=== PATIENT | female | born 1930 | race African-American/Black ===

== ENCOUNTER 2016-08-11 19:17 | Inpatient (IN) | payer MEDICARE, MEDICAID ==
[~2016-08-11] VITALS: Ht 160 cm; Wt 54.4 kg
[2016-08-11] MEDS ORDERED: MORPHINE SULFATE 4 MG/ML CPJ (NOT FOR IM USE) IV ONE (21:00)
[2016-08-11 21:21] LABS: CLARITY URINE CLOUDY (CLEAR); COLOR URINE YELLOW (YELLOW); GLUCOSE URINE NEGATIVE (NEGATIVE); KETONES URINE NEGATIVE (NEGATIVE); LEUKOCYTE ESTERASE URINE 3+ (NEGATIVE); NITRITE URINE NEGATIVE (NEGATIVE); OCCULT BLOOD URINE 3+ (NEGATIVE); PH URINE 5.5 (4.5-8.0); PROTEIN URINE 1+ (NEGATIVE); SPECIFIC GRAVITY URINE 1.022 (1.005-1.030); UROBILINOGEN URINE 0.2 E.U./dL (0.2-1.0)
[2016-08-11 21:40] LABS: BACTERIA URINE 2+; YEAST URINE 2+
[2016-08-11 21:41] LABS: RBC URINE 25-50 /hpf (0-2); SQUAMOUS EPITHELIAL CELL URINE RARE /lpf (RARE/1+); WBC URINE 25-50 /hpf (0-2)
[2016-08-11 22:51] LABS: BASOPHILS % 0.2 % (0.0-2.0); HEMATOCRIT. 25.6 % (36.0-48.0); HEMOGLOBIN. 8.2 g/dL (12.0-16.0); LYMPHOCYTES % 19.1 % (20.0-50.0); MEAN CORPUSCULAR HEMOGLOBIN 28.2 pg (28.0-32.0); MEAN CORPUSCULAR VOLUME 88.1 fL (81.0-99.0); MEAN PLATELET VOLUME 8.9 fl (7.4-10.4); NEUTROPHILS % 75.7 % (40.0-76.0); PLATELET 125 x1000/uL (130-400); RED BLOOD CELL COUNT 2.91 mill/uL (4.2-5.4); RED CELL DISTRIBUTION WIDTH 16.3 % (11.6-14.6); WHITE BLOOD COUNT 11.7 x1000/uL (4.5-11.0)
[2016-08-11 22:58] LABS: INR 1.3; PROTHROMBIN TIME 13.4 sec
[2016-08-11 23:03] LABS: ALANINE AMINOTRANSFERASE 15 IU/L (13-61); ALBUMIN 1.6 g/dL (3.4-5.0); ANION GAP 17; CALCIUM 7.4 mg/dL (8.5-10.1); CARBON DIOXIDE 16 mEq/L (21-32); CHLORIDE 117 mEq/L (98-107); INDEX HEMOLYSI 1 (1-3); INDEX ICTERIC 1 (1-4); INDEX LIPEMIC 1 (1-3); LIPASE 67 IU/L (73-393); UREA NITROGEN BLOOD 37 mg/dL (7-21); eGFR 37 mL/min (>60)
[2016-08-11 23:06] LABS: TROPONIN I 0.39 ng/mL (0.00-0.04)
[2016-08-12] MEDS ORDERED: CEFTRIAXONE 1,000 MG in DEXTROSE 5% WATER 25 ML IV ONE (00:30)
[2016-08-12] MEDS ORDERED: AZITHROMYCIN 500 MG in DEXT 5% WATER 250 ML IV ONE (00:30)
[2016-08-12] MEDS ORDERED: LORAZEPAM 2MG/ML CPJ IV NR (00:45)
[2016-08-12] MEDS ORDERED: CEFTRIAXONE 1GM PREMIX 50ML IV NR (00:45)
[2016-08-12] MEDS ORDERED: SODIUM CHLORIDE 0.9% 1,000 ML IV ONE (01:45)
[2016-08-12 03:45] VITALS: BP 93/50
[2016-08-12 08:00] VITALS: BP 125/73
[2016-08-12] MEDS ORDERED: DOCUSATE SODIUM 100MG CAPSULE PO PRN (08:45)
[2016-08-12] MEDS ORDERED: ONDANSETRON HCL 4MG/2ML VIAL IV PRN (08:45)
[2016-08-12] MEDS ORDERED: GUAIFENESIN 200MG/10ML SUGAR FREE UDC PO PRN (08:45)
[2016-08-12] MEDS ORDERED: CEFTRIAXONE 1 G PREMIX 50 ML IV SCH (08:45)
[2016-08-12] MEDS ORDERED: ACETAMINOPHEN 325MG TABLET PO PRN (08:45)
[2016-08-12] MEDS ORDERED: AZITHROMYCIN 500 MG in DEXT 5% WATER 250 ML IV SCH ×2 (08:45→22:00)
[2016-08-12] MEDS ORDERED: MAGNESIUM/ALUMINUM HYDROXIDE/SIMETHICONE 30ML UDC PO PRN (08:45)
[2016-08-12] MEDS ORDERED: IPRATROPIUM/ALBUTEROL 0.5-3(2.5)MG/3ML NEB INH PRN (08:45)
[2016-08-12] MEDS ORDERED: NA PHOS,M-B/NA PHOS,DI-BA ENEMA 118ML PR PRN (08:45)
[2016-08-12] MEDS ORDERED: ACETAMINOPHEN 650MG/20.3ML UDC GT PRN (08:45)
[2016-08-12 08:47] LABS: BASOPHILS % 0.3 % (0.0-2.0); EOSINOPHILS % 0.4 % (0.0-5.0); HEMATOCRIT. 24.8 % (36.0-48.0); HEMOGLOBIN. 8.1 g/dL (12.0-16.0); LYMPHOCYTES % 16.6 % (20.0-50.0); MEAN CORPUSCULAR HEMOGLOBIN 28.3 pg (28.0-32.0); MEAN CORPUSCULAR HGB CONC 32.7 g/dL (31.0-37.0); MEAN CORPUSCULAR VOLUME 86.5 fL (81.0-99.0); MEAN PLATELET VOLUME 8.7 fl (7.4-10.4); MONOCYTES % 4.5 % (2.0-8.0); NEUTROPHILS % 78.2 % (40.0-76.0); PLATELET 124 x1000/uL (130-400); RED BLOOD CELL COUNT 2.87 mill/uL (4.2-5.4); RED CELL DISTRIBUTION WIDTH 16.2 % (11.6-14.6)
[2016-08-12] MEDS: ENOXAPARIN 30MG/0.3ML SYR SUBCUT SCH (09:00)
[2016-08-12 09:12] LABS: ANION GAP 16; CALCIUM 7.4 mg/dL (8.5-10.1); CARBON DIOXIDE 15 mEq/L (21-32); CHLORIDE 119 mEq/L (98-107); INDEX HEMOLYSI 1 (1-3); INDEX ICTERIC 1 (1-4); INDEX LIPEMIC 1 (1-3); UREA NITROGEN BLOOD 40 mg/dL (7-21); eGFR 40 mL/min (>60)
[2016-08-12] MEDS ORDERED: CEFTRIAXONE XX SCH (09:15)
[2016-08-12] MEDS ORDERED: AZITHROMYCIN XX SCH (09:15)
[2016-08-12 09:42] LABS: ALANINE AMINOTRANSFERASE 12 IU/L (13-61); IRON 12 ug/dL (50-175)
[2016-08-12 09:49] LABS: CLARITY URINE TURBID (CLEAR); COLOR URINE DARK YELLOW (YELLOW); GLUCOSE URINE NEGATIVE (NEGATIVE); KETONES URINE TRACE (NEGATIVE); LEUKOCYTE ESTERASE URINE 3+ (NEGATIVE); NITRITE URINE NEGATIVE (NEGATIVE); OCCULT BLOOD URINE 3+ (NEGATIVE); PROTEIN URINE 2+ (NEGATIVE); SPECIFIC GRAVITY URINE 1.025 (1.005-1.030)
[2016-08-12 09:50] LABS: ALBUMIN 1.6 g/dL (3.4-5.0); TOTAL IRON BINDING CAPACITY 93 ug/dL (250-450)
[2016-08-12 10:04] LABS: SQUAMOUS EPITHELIAL CELL URINE FEW /lpf (RARE/1+)
[2016-08-12 10:05] LABS: INDEX HEMOLYSI 1 (1-3)
[2016-08-12 10:06] LABS: BACTERIA URINE 3+; WBC URINE 15-25 /hpf (0-2); YEAST URINE 4+
[2016-08-12 10:13] LABS: *AMPHETAMINES SCREEN URINE NEGATIVE (NEGATIVE); *BARBITURATES SCREEN URINE NEGATIVE (NEGATIVE); *BENZODIAZEPINES SCREEN URINE NEGATIVE (NEGATIVE); *COCAINE SCREEN URINE NEGATIVE (NEGATIVE); CANNABINOID URINE SCREEN NEGATIVE (NEGATIVE); ECSTASY MDMA SCREEN URINE NEGATIVE (NEGATIVE); OPIATES URINE SCREEN PRESUMTIVE POSITIVE (NEGATIVE); PHENCYCLIDINE URINE SCREEN NEGATIVE (NEGATIVE)
[2016-08-12 10:28] LABS: METHADONE URINE SCREEN PRESUMTIVE POSITIVE (NEGATIVE)
[2016-08-12 10:29] LABS: FOLIC ACID (FOLATE) SERUM > 20.00 ng/mL (>5.38); VITAMIN B12 SERUM > 2000 pg/mL (211-911)
[2016-08-12] MEDS: DEXT 5%/0.45% NACL 1000ML 1,000 ML IV SCH ×2 (10:49)
[2016-08-12] MEDS: CEFTRIAXONE 1 G PREMIX 50 ML IV SCH ×2 (10:50→20:06)
[2016-08-12 12:00] VITALS: BP 131/72
[2016-08-12] MEDS: IPRATROPIUM/ALBUTEROL 0.5-3(2.5)MG/3ML NEB INH SCH ×2 (14:28→21:18)
[2016-08-12] MEDS ORDERED: FUROSEMIDE 20MG TABLET PO SCH (14:30)
[2016-08-12] MEDS: CITRIC ACID/SODIUM CITRATE SOLN 15ML UDC PO SCH ×2 (14:30→17:00)
[2016-08-12] MEDS: SODIUM CHLORIDE 0.9% INJ 3ML FLUSH IVF SCH ×2 (14:59→21:43)
[2016-08-12 15:18] LABS: BG BASE EXCESS -9.6 mmol/L (-2.0-2.0); BG CARBOXYHEMOGLOBIN 1.3 % (0.5-1.5); BG DEOXYHEMOGLOBIN 2.5 % (0.0-5.0); BG FRACTION INSPIRED OXYGEN 21; BG HCO3 ACT 13.3 mmol/L (22.0-26.0); BG METHEMOGLOBIN 0.3 % (0.0-1.5); BG OXYGEN SATURATION 97.5 % (92.0-98.5); BG OXYHEMOGLOBIN 95.9 % (94.0-97.0); BG PCO2 20.6 mmHg (35.0-45.0); BG PH 7.429 (7.350-7.450); BG SAMPLE SITE RIGHT BRACHIAL; BG TOTAL HEMOGLOBIN 8.7 g/dL (12.0-18.0); BG VENT MODE ROOM AIR
[2016-08-12 16:00] VITALS: BP 116/69
[2016-08-12 20:00] VITALS: BP 123/79
[2016-08-12] MEDS: DIPHENHYDRAMINE 50MG/ML VIAL IV PRN (20:06)
[2016-08-13] VITALS: BP 130/84
[2016-08-13] MEDS: DIPHENHYDRAMINE 50MG/ML VIAL IV PRN (00:11)
[2016-08-13] MEDS: IPRATROPIUM/ALBUTEROL 0.5-3(2.5)MG/3ML NEB INH SCH ×4 (02:40→20:56)
[2016-08-13] MEDS: DEXT 5%/0.45% NACL 1000ML 1,000 ML IV SCH ×4 (03:29→18:40)
[2016-08-13 04:00] VITALS: BP 118/67
[2016-08-13] MEDS: SODIUM CHLORIDE 0.9% INJ 3ML FLUSH IVF SCH ×3 (05:11→22:09)
[2016-08-13 05:40] LABS: BASOPHILS % 0.4 % (0.0-2.0); EOSINOPHILS % 0.8 % (0.0-5.0); HEMATOCRIT. 27.1 % (36.0-48.0); HEMOGLOBIN. 8.8 g/dL (12.0-16.0); LYMPHOCYTES % 20.5 % (20.0-50.0); MEAN CORPUSCULAR HGB CONC 32.4 g/dL (31.0-37.0); MEAN CORPUSCULAR VOLUME 86.4 fL (81.0-99.0); MEAN PLATELET VOLUME 8.7 fl (7.4-10.4); MONOCYTES % 5.2 % (2.0-8.0); NEUTROPHILS % 73.1 % (40.0-76.0); PLATELET 147 x1000/uL (130-400); RED BLOOD CELL COUNT 3.13 mill/uL (4.2-5.4); RED CELL DISTRIBUTION WIDTH 16.4 % (11.6-14.6); WHITE BLOOD COUNT 8.6 x1000/uL (4.5-11.0)
[2016-08-13 07:00] LABS: ALBUMIN 1.7 g/dL (3.4-5.0); ANION GAP 14; CARBON DIOXIDE 18 mEq/L (21-32); CHLORIDE 116 mEq/L (98-107); INDEX HEMOLYSI 1 (1-3); INDEX ICTERIC 1 (1-4); INDEX LIPEMIC 1 (1-3); LDL CHOLESTEROL 28 mg/dL (5-100); MAGNESIUM 1.7 mg/dL (1.8-2.4); eGFR 29 mL/min (>60)
[2016-08-13 07:01] LABS: HDL CHOLESTEROL 41 mg/dL (40-59); TRIGLYCERIDE 61 mg/dL (0-150); TROPONIN I 0.37 ng/mL (0.00-0.04)
[2016-08-13 07:04] LABS: ALANINE AMINOTRANSFERASE 13 IU/L (13-61); CALCIUM 7.5 mg/dL (8.5-10.1); UREA NITROGEN BLOOD 44 mg/dL (7-21)
[2016-08-13 08:00] VITALS: BP 142/81
[2016-08-13] MEDS: ACETAMINOPHEN 650MG SUPP PR PRN (08:20)
[2016-08-13] MEDS ORDERED: MAGNESIUM 2 G PREMIX 50 ML IV NR (09:00)
[2016-08-13] MEDS: CITRIC ACID/SODIUM CITRATE SOLN 15ML UDC PO SCH ×3 (09:00→17:00)
[2016-08-13 12:00] VITALS: BP 117/72
[2016-08-13] MEDS: CEFTRIAXONE 1 G PREMIX 50 ML IV SCH ×2 (12:07→22:09)
[2016-08-13] MEDS ORDERED: FLUCONAZOLE 100MG/50ML PREMIX IV SCH (14:15)
[2016-08-13] MEDS: RISPERIDONE 0.5MG TABLET PO SCH (14:30)
[2016-08-13 16:00] VITALS: BP 160/85
[2016-08-13] MEDS: FLUCONAZOLE 100 MG/50ML BAG 50 ML IV SCH (18:35)
[2016-08-13 20:00] VITALS: BP 158/78
[2016-08-14] VITALS (8 sets, daily range): BP systolic 113–187; BP diastolic 76–108
[2016-08-14] MEDS: ACETAMINOPHEN 650MG SUPP PR PRN ×2 (00:57→09:03)
[2016-08-14] MEDS: DIPHENHYDRAMINE 50MG/ML VIAL IV PRN ×2 (00:58→22:42)
[2016-08-14] MEDS: IPRATROPIUM/ALBUTEROL 0.5-3(2.5)MG/3ML NEB INH SCH ×4 (01:13→22:23)
[2016-08-14 06:30] LABS: HEMATOCRIT. 22.4 % (36.0-48.0); HEMOGLOBIN. 7.5 g/dL (12.0-16.0); MEAN CORPUSCULAR HEMOGLOBIN 28.9 pg (28.0-32.0); MEAN CORPUSCULAR HGB CONC 33.6 g/dL (31.0-37.0); MEAN PLATELET VOLUME 8.2 fl (7.4-10.4); PLATELET 117 x1000/uL (130-400); RED CELL DISTRIBUTION WIDTH 16.7 % (11.6-14.6); WHITE BLOOD COUNT 4.9 x1000/uL (4.5-11.0)
[2016-08-14] MEDS: SODIUM CHLORIDE 0.9% INJ 3ML FLUSH IVF SCH ×3 (06:51→21:15)
[2016-08-14 06:53] LABS: CALCIUM 7.3 mg/dL (8.5-10.1); PHOSPHORUS 3.2 mg/dL (2.5-4.9)
[2016-08-14 07:14] LABS: DIFFERENTIAL COMMENT 1
[2016-08-14 07:51] LABS: BG CARBOXYHEMOGLOBIN 1.4 % (0.5-1.5); BG DEOXYHEMOGLOBIN 2.3 % (0.0-5.0); BG FRACTION INSPIRED OXYGEN 21; BG METHEMOGLOBIN 0.3 % (0.0-1.5); BG OXYGEN SATURATION 97.7 % (92.0-98.5); BG PCO2 16.6 mmHg (35.0-45.0); BG PH 7.477 (7.350-7.450); BG SAMPLE SITE RIGHT BRACHIAL; BG TOTAL HEMOGLOBIN 8.1 g/dL (12.0-18.0); BG VENT MODE ROOM AIR
[2016-08-14] MEDS: RISPERIDONE 0.5MG TABLET PO SCH (08:50)
[2016-08-14] MEDS: CITRIC ACID/SODIUM CITRATE SOLN 15ML UDC PO SCH (08:50)
[2016-08-14] MEDS: CEFTRIAXONE 1 G PREMIX 50 ML IV SCH ×2 (09:03→22:00)
[2016-08-14] MEDS ORDERED: MORPHINE SULFATE 2 MG/ML CPJ (NOT FOR IM USE) IV PRN (10:00)
[2016-08-14 10:58] LABS: PLATELET ESTIMATE DECREASED; TOXIC GRANULATION 1+
[2016-08-14 10:59] LABS: ANISOCYTOSIS 1+
[2016-08-14] MEDS: POTASSIUM CHLORIDE INJ 30 MEQ in DEXT 5%/0.2% NACL 1,000 ML IV SCH (12:11)
[2016-08-14] MEDS: CLONIDINE 0.1MG TABLET PO PRN (20:06)
[2016-08-14] MEDS: FLUCONAZOLE 100 MG/50ML BAG 50 ML IV SCH (21:16)
[2016-08-15] VITALS: BP 147/82
[2016-08-15] MEDS: IPRATROPIUM/ALBUTEROL 0.5-3(2.5)MG/3ML NEB INH SCH ×4 (01:06→20:50)
[2016-08-15 04:00] VITALS: BP 138/93
[2016-08-15] MEDS: POTASSIUM CHLORIDE INJ 30 MEQ in DEXT 5%/0.2% NACL 1,000 ML IV SCH (04:15)
[2016-08-15] MEDS: SODIUM CHLORIDE 0.9% INJ 3ML FLUSH IVF SCH ×2 (06:08→16:58)
[2016-08-15 07:24] LABS: CALCIUM 7.4 mg/dL (8.5-10.1); MAGNESIUM 1.9 mg/dL (1.8-2.4); PHOSPHORUS 2.6 mg/dL (2.5-4.9); THYROID STIMULATING HORMONE 1.2 uIU/mL (0.36-3.74)
[2016-08-15 07:42] LABS: BASOPHILS % 0.3 % (0.0-2.0); EOSINOPHILS % 0.7 % (0.0-5.0); HEMATOCRIT. 28.9 % (36.0-48.0); HEMOGLOBIN. 9.5 g/dL (12.0-16.0); LYMPHOCYTES % 26.9 % (20.0-50.0); MEAN CORPUSCULAR HEMOGLOBIN 28.4 pg (28.0-32.0); MEAN PLATELET VOLUME 8.2 fl (7.4-10.4); MONOCYTES % 7.2 % (2.0-8.0); NEUTROPHILS % 64.9 % (40.0-76.0); PLATELET 130 x1000/uL (130-400); RED BLOOD CELL COUNT 3.36 mill/uL (4.2-5.4); RED CELL DISTRIBUTION WIDTH 15.7 % (11.6-14.6); WHITE BLOOD COUNT 6.5 x1000/uL (4.5-11.0)
[2016-08-15 08:00] VITALS: BP 161/95
[2016-08-15] MEDS: RISPERIDONE 0.5MG TABLET PO SCH (09:41)
[2016-08-15] MEDS: MEMANTINE HCL 5MG TABLET PO SCH (09:41)
[2016-08-15] MEDS: CEFTRIAXONE 1 G PREMIX 50 ML IV SCH (09:42)
[2016-08-15] MEDS: AMLODIPINE 5MG TABLET PO SCH (09:42)
[2016-08-15] MEDS: DEXT 5% WATER + KCL 20MEQ/L 1,000 ML IV SCH (12:21)
[2016-08-15 16:00] VITALS: BP 157/86
[2016-08-15] MEDS: AMPICILLIN 2,000 MG in SODIUM CHLORIDE 0.9% 100 ML IV SCH (16:58)
[2016-08-15] MEDS: FLUCONAZOLE 100 MG/50ML BAG 50 ML IV SCH (18:18)
[2016-08-15 20:00] VITALS: BP 159/111
[2016-08-16] VITALS: BP 176/88
[2016-08-16] MEDS: SODIUM CHLORIDE 0.9% INJ 3ML FLUSH IVF SCH ×4 (00:07→22:17)
[2016-08-16] MEDS: AMPICILLIN 2,000 MG in SODIUM CHLORIDE 0.9% 100 ML IV SCH ×4 (00:07→22:17)
[2016-08-16] MEDS: IPRATROPIUM/ALBUTEROL 0.5-3(2.5)MG/3ML NEB INH SCH ×4 (02:00→20:04)
[2016-08-16] MEDS: CLONIDINE 0.1MG TABLET PO PRN (02:08)
[2016-08-16 04:00] VITALS: BP 153/106
[2016-08-16 07:22] LABS: BASOPHILS % 0.5 % (0.0-2.0); EOSINOPHILS % 1.1 % (0.0-5.0); HEMATOCRIT. 27.1 % (36.0-48.0); HEMOGLOBIN. 9.2 g/dL (12.0-16.0); LYMPHOCYTES % 35.4 % (20.0-50.0); MEAN CORPUSCULAR HEMOGLOBIN 28.7 pg (28.0-32.0); MEAN CORPUSCULAR HGB CONC 33.9 g/dL (31.0-37.0); MEAN CORPUSCULAR VOLUME 84.8 fL (81.0-99.0); MEAN PLATELET VOLUME 7.8 fl (7.4-10.4); MONOCYTES % 9.1 % (2.0-8.0); NEUTROPHILS % 53.9 % (40.0-76.0); PLATELET 127 x1000/uL (130-400); RED CELL DISTRIBUTION WIDTH 16.4 % (11.6-14.6)
[2016-08-16 08:00] VITALS: BP 154/82
[2016-08-16 08:11] LABS: ANION GAP 14; CALCIUM 7.5 mg/dL (8.5-10.1); CARBON DIOXIDE 16 mEq/L (21-32); CHLORIDE 119 mEq/L (98-107); INDEX HEMOLYSI 1 (1-3); INDEX ICTERIC 1 (1-4); INDEX LIPEMIC 1 (1-3); MAGNESIUM 1.8 mg/dL (1.8-2.4); UREA NITROGEN BLOOD 22 mg/dL (7-21); eGFR > 60 mL/min (>60)
[2016-08-16] MEDS: MEMANTINE HCL 5MG TABLET PO SCH (08:58)
[2016-08-16] MEDS: LACTOBACILLUS GG CAPSULE PO SCH (08:58)
[2016-08-16] MEDS: AMLODIPINE 5MG TABLET PO SCH (08:59)
[2016-08-16] MEDS: RISPERIDONE 0.5MG TABLET PO SCH (08:59)
[2016-08-16] MEDS: DEXT 5% WATER + KCL 20MEQ/L 1,000 ML IV SCH (09:05)
[2016-08-16] MEDS ORDERED: MAGNESIUM 2 G PREMIX 50 ML IV NR (10:30)
[2016-08-16] MEDS ORDERED: POTASSIUM PHOS,M-BASIC-D-BASIC 30 MMOL in DEXT 5% WATER 500 ML IV NR (11:00)
[2016-08-16 12:00] VITALS: BP 136/79
[2016-08-16] MEDS ORDERED: IOHEXOL-300 100 ML BOTTLE ONE (14:23)
[2016-08-16] MEDS ORDERED: SODIUM CHLORIDE 0.9% 10ML VIAL ONE (14:23)
[2016-08-16 16:00] VITALS: BP 149/72
[2016-08-16 20:00] VITALS: BP 144/82
[2016-08-16] MEDS: FLUCONAZOLE 100 MG/50ML BAG 50 ML IV SCH (21:12)
[2016-08-17] VITALS: BP 129/68
[2016-08-17] MEDS: IPRATROPIUM/ALBUTEROL 0.5-3(2.5)MG/3ML NEB INH SCH ×4 (02:04→21:10)
[2016-08-17 04:00] VITALS: BP 130/77
[2016-08-17] MEDS: AMPICILLIN 2,000 MG in SODIUM CHLORIDE 0.9% 100 ML IV SCH ×4 (04:47→21:51)
[2016-08-17] MEDS: SODIUM CHLORIDE 0.9% INJ 3ML FLUSH IVF SCH ×3 (04:50→21:51)
[2016-08-17 07:14] LABS: BASOPHILS % 0.4 % (0.0-2.0); EOSINOPHILS % 1.1 % (0.0-5.0); HEMATOCRIT. 24.6 % (36.0-48.0); HEMOGLOBIN. 8.2 g/dL (12.0-16.0); LYMPHOCYTES % 32.2 % (20.0-50.0); MEAN CORPUSCULAR HEMOGLOBIN 28.5 pg (28.0-32.0); MEAN CORPUSCULAR HGB CONC 33.3 g/dL (31.0-37.0); MEAN CORPUSCULAR VOLUME 85.4 fL (81.0-99.0); MEAN PLATELET VOLUME 7.8 fl (7.4-10.4); MONOCYTES % 9.5 % (2.0-8.0); NEUTROPHILS % 56.8 % (40.0-76.0); PLATELET 98 x1000/uL (130-400); RED BLOOD CELL COUNT 2.88 mill/uL (4.2-5.4); RED CELL DISTRIBUTION WIDTH 16.2 % (11.6-14.6); WHITE BLOOD COUNT 4.6 x1000/uL (4.5-11.0)
[2016-08-17 08:00] VITALS: BP 158/90
[2016-08-17 08:46] LABS: ANION GAP 12; CALCIUM 6.7 mg/dL (8.5-10.1); CARBON DIOXIDE 18 mEq/L (21-32); CHLORIDE 110 mEq/L (98-107); INDEX HEMOLYSI 1 (1-3); INDEX ICTERIC 1 (1-4); INDEX LIPEMIC 1 (1-3); MAGNESIUM 1.9 mg/dL (1.8-2.4); UREA NITROGEN BLOOD 14 mg/dL (7-21); eGFR > 60 mL/min (>60)
[2016-08-17] MEDS: RISPERIDONE 0.5MG TABLET PO SCH (09:29)
[2016-08-17] MEDS: MEMANTINE HCL 5MG TABLET PO SCH (09:29)
[2016-08-17] MEDS: LACTOBACILLUS GG CAPSULE PO SCH (09:29)
[2016-08-17] MEDS: AMLODIPINE 5MG TABLET PO SCH (09:29)
[2016-08-17 12:00] VITALS: BP 149/72
[2016-08-17] MEDS: METRONIDAZOLE 500MG TABLET PO SCH ×3 (14:00→21:49)
[2016-08-17 16:00] VITALS: BP 133/82
[2016-08-17] MEDS: FLUCONAZOLE 100 MG/50ML BAG 50 ML IV SCH (16:20)
[2016-08-17 20:00] VITALS: BP 138/86
[2016-08-17] MEDS: ASCORBIC ACID 250 MG TABLET PO SCH (21:49)
[2016-08-18] VITALS: BP 161/90
[2016-08-18] MEDS: IPRATROPIUM/ALBUTEROL 0.5-3(2.5)MG/3ML NEB INH SCH ×4 (01:21→20:49)
[2016-08-18] MEDS: AMPICILLIN 2,000 MG in SODIUM CHLORIDE 0.9% 100 ML IV SCH ×4 (03:01→21:54)
[2016-08-18 04:00] VITALS: BP 160/98
[2016-08-18] MEDS: METRONIDAZOLE 500MG TABLET PO SCH ×3 (06:32→21:53)
[2016-08-18] MEDS: SODIUM CHLORIDE 0.9% INJ 3ML FLUSH IVF SCH ×3 (06:32→22:00)
[2016-08-18 07:29] LABS: BASOPHILS % 0.4 % (0.0-2.0); EOSINOPHILS % 0.9 % (0.0-5.0); HEMATOCRIT. 28.8 % (36.0-48.0); HEMOGLOBIN. 9.6 g/dL (12.0-16.0); LYMPHOCYTES % 25.7 % (20.0-50.0); MEAN CORPUSCULAR HEMOGLOBIN 28.4 pg (28.0-32.0); MEAN CORPUSCULAR HGB CONC 33.4 g/dL (31.0-37.0); MEAN CORPUSCULAR VOLUME 84.9 fL (81.0-99.0); MEAN PLATELET VOLUME 7.6 fl (7.4-10.4); MONOCYTES % 6.9 % (2.0-8.0); NEUTROPHILS % 66.1 % (40.0-76.0); PLATELET 80 x1000/uL (130-400); RED BLOOD CELL COUNT 3.39 mill/uL (4.2-5.4); RED CELL DISTRIBUTION WIDTH 16.2 % (11.6-14.6); WHITE BLOOD COUNT 4.5 x1000/uL (4.5-11.0)
[2016-08-18 08:00] VITALS: BP 169/94
[2016-08-18 08:07] LABS: CHLORIDE 112 mEq/L (98-107); INDEX HEMOLYSI 1 (1-3); INDEX ICTERIC 1 (1-4); INDEX LIPEMIC 1 (1-3)
[2016-08-18 08:56] LABS: ANION GAP 18; CALCIUM 7.1 mg/dL (8.5-10.1); CARBON DIOXIDE 17 mEq/L (21-32); MAGNESIUM 1.7 mg/dL (1.8-2.4); PHOSPHORUS 2.1 mg/dL (2.5-4.9); UREA NITROGEN BLOOD 10 mg/dL (7-21); eGFR > 60 mL/min (>60)
[2016-08-18] MEDS: MEMANTINE HCL 5MG TABLET PO SCH (10:04)
[2016-08-18] MEDS: AMLODIPINE 5MG TABLET PO SCH (10:04)
[2016-08-18] MEDS: ASCORBIC ACID 250 MG TABLET PO SCH ×2 (10:04→21:53)
[2016-08-18] MEDS: ZINC SULFATE 220 MG ( 50 ) CAPSULE PO SCH (10:04)
[2016-08-18] MEDS: FOLIC ACID/VITAMIN B COMP W-C TABLET PO SCH (10:04)
[2016-08-18] MEDS: RISPERIDONE 0.5MG TABLET PO SCH (10:04)
[2016-08-18] MEDS: LACTOBACILLUS GG CAPSULE PO SCH (10:05)
[2016-08-18 12:36] VITALS: BP 178/96
[2016-08-18] MEDS: CLONIDINE 0.1MG TABLET PO PRN (13:09)
[2016-08-18] MEDS ORDERED: AMLODIPINE 10MG TABLET PO SCH (15:41)
[2016-08-18] MEDS ORDERED: SODIUM BICARBONATE 8.4% 1 MEQ/ML 50ML SYR IV NR (15:45)
[2016-08-18 16:03] VITALS: BP 152/95
[2016-08-18] MEDS ORDERED: KCL 20MEQ/100ML PREMIX 100 ML IV NR (16:30)
[2016-08-18] MEDS: LIPASE/PROTEASE/AMYLASE 4,200/10,000/17,5000 UNITS CAP DR PO SCH (17:21)
[2016-08-18] MEDS: FLUCONAZOLE 100 MG/50ML BAG 50 ML IV SCH (18:22)
[2016-08-18 20:00] VITALS: BP 151/94
[2016-08-18] MEDS: LOSARTAN POTASSIUM 50 MG TABLET PO SCH (21:52)
[2016-08-19] VITALS (19 sets, daily range): BP systolic 70–147; BP diastolic 50–87
[2016-08-19] MEDS: IPRATROPIUM/ALBUTEROL 0.5-3(2.5)MG/3ML NEB INH SCH ×4 (01:31→20:00)
[2016-08-19] MEDS: METRONIDAZOLE 500MG TABLET PO SCH ×3 (06:00→21:09)
[2016-08-19] MEDS: LIPASE/PROTEASE/AMYLASE 4,200/10,000/17,5000 UNITS CAP DR PO SCH ×3 (06:00→18:46)
[2016-08-19] MEDS: AMPICILLIN 2,000 MG in SODIUM CHLORIDE 0.9% 100 ML IV SCH ×2 (06:00→10:09)
[2016-08-19 06:10] LABS: CLARITY URINE TURBID (CLEAR); COLOR URINE YELLOW (YELLOW); GLUCOSE URINE NEGATIVE (NEGATIVE); KETONES URINE NEGATIVE (NEGATIVE); LEUKOCYTE ESTERASE URINE 1+ (NEGATIVE); NITRITE URINE NEGATIVE (NEGATIVE); OCCULT BLOOD URINE 1+ (NEGATIVE); PH URINE 5.5 (4.5-8.0); PROTEIN URINE 1+ (NEGATIVE); SPECIFIC GRAVITY URINE 1.023 (1.005-1.030); UROBILINOGEN URINE 0.2 E.U./dL (0.2-1.0)
[2016-08-19] MEDS: SODIUM CHLORIDE 0.9% INJ 3ML FLUSH IVF SCH ×3 (06:11→21:07)
[2016-08-19 07:44] LABS: BACTERIA URINE 2+; SQUAMOUS EPITHELIAL CELL URINE FEW /lpf (RARE/1+); WBC URINE 15-25 /hpf (0-2)
[2016-08-19 07:46] LABS: URIC ACID CRYSTALS URINE 1+ /lpf
[2016-08-19] MEDS: ZINC SULFATE 220 MG ( 50 ) CAPSULE PO SCH (10:06)
[2016-08-19] MEDS: FOLIC ACID/VITAMIN B COMP W-C TABLET PO SCH (10:06)
[2016-08-19] MEDS: RISPERIDONE 0.5MG TABLET PO SCH (10:06)
[2016-08-19] MEDS: LACTOBACILLUS GG CAPSULE PO SCH (10:07)
[2016-08-19] MEDS: ASCORBIC ACID 250 MG TABLET PO SCH ×2 (10:07→20:34)
[2016-08-19] MEDS: LOSARTAN POTASSIUM 50 MG TABLET PO SCH (10:07)
[2016-08-19] MEDS: MEMANTINE HCL 5MG TABLET PO SCH (10:07)
[2016-08-19 17:02] LABS: HEMATOCRIT. 31.8 % (36.0-48.0); HEMOGLOBIN. 10.4 g/dL (12.0-16.0); MEAN CORPUSCULAR HEMOGLOBIN 28.3 pg (28.0-32.0); MEAN CORPUSCULAR HGB CONC 32.8 g/dL (31.0-37.0); MEAN CORPUSCULAR VOLUME 86.4 fL (81.0-99.0); MEAN PLATELET VOLUME 8.1 fl (7.4-10.4); PLATELET 67 x1000/uL (130-400); RED BLOOD CELL COUNT 3.68 mill/uL (4.2-5.4); RED CELL DISTRIBUTION WIDTH 16.2 % (11.6-14.6); WHITE BLOOD COUNT 6.1 x1000/uL (4.5-11.0)
[2016-08-19 17:04] LABS: DIFFERENTIAL COMMENT 1
[2016-08-19 17:18] LABS: ALBUMIN 1.7 g/dL (3.4-5.0); ANION GAP 14; CALCIUM 7.4 mg/dL (8.5-10.1); CARBON DIOXIDE 23 mEq/L (21-32); CHLORIDE 116 mEq/L (98-107); UREA NITROGEN BLOOD 14 mg/dL (7-21); eGFR 57 mL/min (>60)
[2016-08-19 17:19] LABS: ALANINE AMINOTRANSFERASE 15 IU/L (13-61); ATYPICAL LYMPHOCYTES 4; INDEX HEMOLYSI 1 (1-3); INDEX ICTERIC 1 (1-4); INDEX LIPEMIC 1 (1-3); MAGNESIUM 1.8 mg/dL (1.8-2.4); PLATELET ESTIMATE DECREASED; TROPONIN I 0.25 ng/mL (0.00-0.04)
[2016-08-19] MEDS ORDERED: DIGOXIN 500MCG/2ML AMP IV NR (17:45)
[2016-08-19] MEDS ORDERED: SODIUM CHLORIDE 0.9% 1,000 ML IV SCH (18:00)
[2016-08-19] MEDS ORDERED: SODIUM CHLORIDE 0.9% 250 ML IV NR (18:00)
[2016-08-19] MEDS ORDERED: MAGNESIUM 1 G PREMIX 100 ML IV NR (18:00)
[2016-08-19] MEDS: SODIUM CHLORIDE 0.45% 1,000 ML IV SCH (18:25)
[2016-08-19] MEDS: FLUCONAZOLE 100 MG/50ML BAG 50 ML IV SCH (18:28)
[2016-08-19] MEDS ORDERED: LEVOFLOXACIN 500MG PREMIX 100 ML IV NR (20:00)
[2016-08-19] MEDS: DILTIAZEM HCL 30MG TABLET PO SCH (21:09)
[2016-08-20] VITALS (41 sets, daily range): BP systolic 116–166; BP diastolic 62–98
[2016-08-20] MEDS: IPRATROPIUM/ALBUTEROL 0.5-3(2.5)MG/3ML NEB INH SCH ×4 (01:03→20:09)
[2016-08-20 05:33] LABS: BASOPHILS % 0.5 % (0.0-2.0); EOSINOPHILS % 0.2 % (0.0-5.0); HEMATOCRIT. 28.1 % (36.0-48.0); HEMOGLOBIN. 9.3 g/dL (12.0-16.0); LYMPHOCYTES % 27.5 % (20.0-50.0); MEAN CORPUSCULAR HEMOGLOBIN 28.8 pg (28.0-32.0); MEAN CORPUSCULAR HGB CONC 33.1 g/dL (31.0-37.0); MEAN PLATELET VOLUME 9.1 fl (7.4-10.4); MONOCYTES % 7.9 % (2.0-8.0); NEUTROPHILS % 63.9 % (40.0-76.0); PLATELET 65 x1000/uL (130-400); RED BLOOD CELL COUNT 3.23 mill/uL (4.2-5.4); RED CELL DISTRIBUTION WIDTH 16.5 % (11.6-14.6); WHITE BLOOD COUNT 6.9 x1000/uL (4.5-11.0)
[2016-08-20] MEDS: SODIUM CHLORIDE 0.9% INJ 3ML FLUSH IVF SCH ×2 (05:40→13:54)
[2016-08-20] MEDS: DILTIAZEM HCL 30MG TABLET PO SCH (05:41)
[2016-08-20] MEDS: METRONIDAZOLE 500MG TABLET PO SCH ×3 (05:42→21:35)
[2016-08-20 05:53] LABS: ALANINE AMINOTRANSFERASE 14 IU/L (13-61); ALBUMIN 1.6 g/dL (3.4-5.0); ANION GAP 11; CALCIUM 7.2 mg/dL (8.5-10.1); CARBON DIOXIDE 26 mEq/L (21-32); CHLORIDE 116 mEq/L (98-107); INDEX HEMOLYSI 2 (1-3); INDEX ICTERIC 1 (1-4); INDEX LIPEMIC 1 (1-3); UREA NITROGEN BLOOD 17 mg/dL (7-21); eGFR 57 mL/min (>60)
[2016-08-20] MEDS: LIPASE/PROTEASE/AMYLASE 4,200/10,000/17,5000 UNITS CAP DR PO SCH ×3 (06:19→16:00)
[2016-08-20] MEDS: LACTOBACILLUS GG CAPSULE PO SCH (09:11)
[2016-08-20] MEDS: SODIUM CHLORIDE 0.45% 1,000 ML IV SCH (09:11)
[2016-08-20] MEDS: ZINC SULFATE 220 MG ( 50 ) CAPSULE PO SCH (09:11)
[2016-08-20] MEDS: RISPERIDONE 0.5MG TABLET PO SCH (09:11)
[2016-08-20] MEDS: ASCORBIC ACID 250 MG TABLET PO SCH ×2 (09:12→20:02)
[2016-08-20] MEDS: FOLIC ACID/VITAMIN B COMP W-C TABLET PO SCH (09:12)
[2016-08-20] MEDS: MEMANTINE HCL 5MG TABLET PO SCH (11:16)
[2016-08-20] MEDS: DILTIAZEM HCL 60MG TABLET PO SCH ×2 (13:58→21:35)
[2016-08-20] MEDS: FLUCONAZOLE 100 MG/50ML BAG 50 ML IV SCH (15:02)
[2016-08-20] MEDS: CLONIDINE 0.1MG TABLET PO PRN (19:59)
[2016-08-20] MEDS: LEVOFLOXACIN 250MG PREMIX 50 ML IV SCH (19:59)
[2016-08-21] MEDS: SODIUM CHLORIDE 0.45% 1,000 ML IV SCH ×2 (00:24→11:04)
[2016-08-21] MEDS: SODIUM CHLORIDE 0.9% INJ 3ML FLUSH IVF SCH ×4 (00:25→22:16)
[2016-08-21] MEDS: IPRATROPIUM/ALBUTEROL 0.5-3(2.5)MG/3ML NEB INH SCH ×4 (01:22→20:33)
[2016-08-21 04:30] VITALS: BP 142/81
[2016-08-21] MEDS: METRONIDAZOLE 500MG TABLET PO SCH ×3 (05:30→22:16)
[2016-08-21] MEDS: DILTIAZEM HCL 60MG TABLET PO SCH ×3 (05:30→22:17)
[2016-08-21 06:15] LABS: HEMATOCRIT. 26.1 % (36.0-48.0); HEMOGLOBIN. 8.4 g/dL (12.0-16.0); MEAN CORPUSCULAR HEMOGLOBIN 27.8 pg (28.0-32.0); MEAN CORPUSCULAR HGB CONC 32.3 g/dL (31.0-37.0); MEAN CORPUSCULAR VOLUME 86.2 fL (81.0-99.0); MEAN PLATELET VOLUME 8.3 fl (7.4-10.4); PLATELET 58 x1000/uL (130-400); RED BLOOD CELL COUNT 3.03 mill/uL (4.2-5.4); RED CELL DISTRIBUTION WIDTH 16.8 % (11.6-14.6); WHITE BLOOD COUNT 5.1 x1000/uL (4.5-11.0)
[2016-08-21 07:07] LABS: DIFFERENTIAL COMMENT 1
[2016-08-21 07:23] LABS: ANION GAP 15; CALCIUM 7.2 mg/dL (8.5-10.1); CARBON DIOXIDE 20 mEq/L (21-32); CHLORIDE 112 mEq/L (98-107); INDEX HEMOLYSI 1 (1-3); INDEX ICTERIC 1 (1-4); INDEX LIPEMIC 1 (1-3); UREA NITROGEN BLOOD 16 mg/dL (7-21); eGFR > 60 mL/min (>60)
[2016-08-21 08:00] VITALS: BP 127/65
[2016-08-21] MEDS: LACTOBACILLUS GG CAPSULE PO SCH (09:33)
[2016-08-21] MEDS: ASCORBIC ACID 250 MG TABLET PO SCH ×2 (09:34→22:16)
[2016-08-21] MEDS: ZINC SULFATE 220 MG ( 50 ) CAPSULE PO SCH (09:34)
[2016-08-21] MEDS: MEMANTINE HCL 5MG TABLET PO SCH (09:35)
[2016-08-21] MEDS: FOLIC ACID/VITAMIN B COMP W-C TABLET PO SCH (09:36)
[2016-08-21] MEDS: RISPERIDONE 0.5MG TABLET PO SCH (09:36)
[2016-08-21 12:00] VITALS: BP 169/91
[2016-08-21] MEDS: LIPASE/PROTEASE/AMYLASE 4,200/10,000/17,5000 UNITS CAP DR PO SCH ×2 (13:03→17:22)
[2016-08-21 16:00] VITALS: BP 130/86
[2016-08-21] MEDS: LEVOFLOXACIN 250MG PREMIX 50 ML IV SCH (17:23)
[2016-08-21 20:00] VITALS: BP 126/76
[2016-08-22] VITALS (8 sets, daily range): BP systolic 131–158; BP diastolic 61–105
[2016-08-22] MEDS: SODIUM CHLORIDE 0.45% 1,000 ML IV SCH ×2 (00:56→11:34)
[2016-08-22] MEDS: IPRATROPIUM/ALBUTEROL 0.5-3(2.5)MG/3ML NEB INH SCH ×4 (01:06→21:09)
[2016-08-22] MEDS: METRONIDAZOLE 500MG TABLET PO SCH ×4 (07:08→21:31)
[2016-08-22] MEDS: DILTIAZEM HCL 60MG TABLET PO SCH ×4 (07:09→21:31)
[2016-08-22] MEDS: SODIUM CHLORIDE 0.9% INJ 3ML FLUSH IVF SCH ×3 (07:12→21:23)
[2016-08-22 07:29] LABS: CHLORIDE 110 mEq/L (98-107); INDEX HEMOLYSI 1 (1-3); INDEX ICTERIC 1 (1-4); INDEX LIPEMIC 2 (1-3)
[2016-08-22 07:36] LABS: ALANINE AMINOTRANSFERASE 17 IU/L (13-61); ALBUMIN 1.7 g/dL (3.4-5.0); ANION GAP 16; CALCIUM 7.5 mg/dL (8.5-10.1); CARBON DIOXIDE 18 mEq/L (21-32); MAGNESIUM 1.8 mg/dL (1.8-2.4); UREA NITROGEN BLOOD 15 mg/dL (7-21); eGFR > 60 mL/min (>60)
[2016-08-22] MEDS: ZINC SULFATE 220 MG ( 50 ) CAPSULE PO SCH (09:21)
[2016-08-22] MEDS: ASCORBIC ACID 250 MG TABLET PO SCH ×3 (09:22→21:22)
[2016-08-22] MEDS: RISPERIDONE 0.5MG TABLET PO SCH (09:22)
[2016-08-22] MEDS: FOLIC ACID/VITAMIN B COMP W-C TABLET PO SCH (09:22)
[2016-08-22] MEDS: LIPASE/PROTEASE/AMYLASE 4,200/10,000/17,5000 UNITS CAP DR PO SCH ×3 (09:22→18:31)
[2016-08-22] MEDS: MEMANTINE HCL 5MG TABLET PO SCH (09:22)
[2016-08-22] MEDS: LACTOBACILLUS GG CAPSULE PO SCH (09:22)
[2016-08-22 09:31] LABS: ANISOCYTOSIS 1+; PLATELET ESTIMATE DECREASED
[2016-08-22] MEDS ORDERED: POTASSIUM CHLORIDE 20MEQ TABLET SR PO NR (10:42)
[2016-08-22] MEDS ORDERED: MAGNESIUM 1 G PREMIX 100 ML IV NR (12:00)
[2016-08-22] MEDS: LEVOFLOXACIN 250MG PREMIX 50 ML IV SCH (18:32)
[2016-08-23] VITALS: BP 158/71
== END 2016-08-23 01:45 | DRG 871 ==
LOC: ER 19:18 → 5WST 08-12 00:40 → MICUSO 08-19 16:43 → 8WST 08-20 23:00
PROVIDERS: ADMIT Internal Medicine; ATTEND Internal Medicine
PROC: 30233N1 Transfusion of Nonautologous Red Blood Cells into Peripheral Vein, Percutaneous Approach (ICD-10-PCS; principal; 2016-08-14)
PROC: 05HA33Z Insertion of Infusion Device into Left Brachial Vein, Percutaneous Approach (ICD-10-PCS; 2016-08-16)
PROC: B54NZZA Ultrasonography of Left Upper Extremity Veins, Guidance (ICD-10-PCS; 2016-08-16)
DX: A41.9 Sepsis, unspecified organism (principal); I21.4 Non-ST elevation (NSTEMI) myocardial infarction; E43 Unspecified severe protein-calorie malnutrition; S06.5X0A Traumatic subdural hemorrhage without loss of consciousness, initial encounter; J69.0 Pneumonitis due to inhalation of food and vomit; N17.9 Acute kidney failure, unspecified; E87.4 Mixed disorder of acid-base balance; R64 Cachexia; B37.49 Other urogenital candidiasis; E87.0 Hyperosmolality and hypernatremia; I47.1 Supraventricular tachycardia; J90 Pleural effusion, not elsewhere classified; J98.11 Atelectasis; N18.9 Chronic kidney disease, unspecified; I13.10 Hypertensive heart and chronic kidney disease without heart failure, with stage 1 through stage 4 chronic kidney disease, or unspecified chronic kidney disease; L89.159 Pressure ulcer of sacral region, unspecified stage; D50.9 Iron deficiency anemia, unspecified; D69.6 Thrombocytopenia, unspecified; B95.2 Enterococcus as the cause of diseases classified elsewhere; E83.42 Hypomagnesemia; E83.51 Hypocalcemia; E86.0 Dehydration; E87.6 Hypokalemia; F03.90 Unspecified dementia, unspecified severity, without behavioral disturbance, psychotic disturbance, mood disturbance, and anxiety; R10.2 Pelvic and perineal pain; G40.909 Epilepsy, unspecified, not intractable, without status epilepticus; K52.9 Noninfective gastroenteritis and colitis, unspecified; M19.90 Unspecified osteoarthritis, unspecified site; N28.1 Cyst of kidney, acquired; R62.7 Adult failure to thrive; Z96.643 Presence of artificial hip joint, bilateral; Z91.81 History of falling; Z86.73 Personal history of transient ischemic attack (TIA), and cerebral infarction without residual deficits; Z68.21 Body mass index [BMI] 21.0-21.9, adult; Z74.01 Bed confinement status
CPT/HCPCS: 36415; 36569; 36600; 51702; 70450; 71010; 74176; 74178; 76770; 76937; 80048; 80053; 80061; 80305; 81001; 82306; 82330; 82375; 82607; 82746; 82805; 82962; 83036; 83540; 83550; 83605; 83690; 83735; 83880; 84100; 84443; 84484; 85025; 85379; 85610; 86850; 86900; 86920; 87015; 87040; 87045; 87077; 87086; 87106; 87186; 87427; 87449; 87493; 92610; 93005; 93308; 93970; 94640; 94664; 96365; 96366; 96367; 96375; 99291; A4216; C1725; C1893; J0290; J0456; J0696; J1200; J1450; J1956; J2060; J2270; J3475; J3480; J3490; J7030; J7040; J7050; J7060; J7620; P9016; Q9967; A4315